=== PATIENT | male | born 1970 | race Caucasian/White ===

== ENCOUNTER 2017-05-14 17:35 | Emergency (ER) | payer BC, OTHER ==
[~2017-05-14] VITALS: Ht 188 cm; Wt 83.6 kg
[2017-05-14] MEDS ORDERED: ZYRTEC10 M7 PO (17:50)
[2017-05-14] MEDS ORDERED: RANITIDINE HCL150 M3 PO (17:51)
[2017-05-14] MEDS ORDERED: AZELASTINE137 MCG/01 (17:51)
[2017-05-14] MEDS ORDERED: NASONEX17 G1 (17:51)
== END 2017-05-14 19:03 ==
LOC: EDMED 17:35
PROC: 0HQGXZZ Repair Left Hand Skin, External Approach (ICD-10-PCS; principal; 2017-05-14)
DX: S61.216A Laceration without foreign body of right little finger without damage to nail, initial encounter (principal); W26.0XXA Contact with knife, initial encounter; Y93.89 Activity, other specified; Y92.69 Other specified industrial and construction area as the place of occurrence of the external cause; Y99.0 Civilian activity done for income or pay